=== PATIENT | male | born 1960 | race American Indian/Alaskan Native ===

== ENCOUNTER 2021-05-05 10:23 | Outpatient (CLI) | payer OTHER ==
--- NOTE | 2021-05-05 12:07 | Cat Scan Report ---
CT THORACIC SPINE: 05/05/2021 INDICATION / CLINICAL INFORMATION: SOFT TISSUE DISORDER,UNSPECIFIED. COMPARISON: None available. FINDINGS: CT images of the thoracic spine were obtained. Images are evaluated in the axial, coronal, and sagitt al planes. There is no evidence of acute abnormality. There is a subtle right convex scoliosis of the thoracic spine. Vertebral body height and alignment i s otherwise normal. There is no evidence of canal or foraminal narrowing. C6 mild degenerative disc space narrowing and osteophyte formation is present throughout the thoracic spine. PARASPINAL STRUCTURES: Unremarkable IMPRESSION: No acute abnormality. If there is a specific area of clinical concern which is not addressed by this report, please feel fr ee to contact me directly for additional imaging and protocol evaluation. All CT scans at this location are performed using dose reduction to ALARA by means of automated expos ure control. Signer Name: Matti Borges MD Signed: 05/05/2021 12:03 PM Workstation Name: [id number]
== END 2021-05-05 10:24 | disposition home or self-care (01) ==
LOC: CT 10:23
PROVIDERS: ATTEND Surgery
DX: M41.84 Other forms of scoliosis, thoracic region (principal); M51.34 Other intervertebral disc degeneration, thoracic region; M79.9 Soft tissue disorder, unspecified
CPT/HCPCS: 72128

== ENCOUNTER 2021-06-06 10:21 | Day surgery (SDC) | payer OTHER ==
[~2021-06-06 10:21] MED LIST: BUPIVACAINE/PF (0.5%) 5 MG/1 ML 30 ML VIAL INFILTRATI ONE; LIDOCAINE (1%) 10 MG/1 ML VIAL 20 ML MDV ONE
[2021-06-06] MEDS ORDERED: LIDOCAINE (1%) 10 MG/1 ML VIAL 20 ML MDV INFILTRATI ONE (10:50)
[2021-06-06] MEDS ORDERED: BUPIVACAINE/PF (0.5%) 5 MG/1 ML 30 ML VIAL INFILTRATI ONE (10:50)
[2021-06-06] MEDS ORDERED: SODIUM CHLORIDE 0.9% IRR 1,500 ML BOTTLE IR ONE (10:51)
[2021-06-06 11:12] VITALS: BP 125/84
--- NOTE | 2021-06-06 13:59 | Procedure Note ---
Date of procedure: 06/06/21 Pre-op diagnosis: Large mass of right back Post-op diagnosis: same Procedure: Incisional biopsy of right back mass Findings: Patient identified. He was brought back to the procedure room and placed in right lateral decubitus position. The area was prepped and draped in usual sterile fashion and a timeout performed. Local anesthetic was infiltrated into the skin at the intended incision site. A 2 cm horizontal incision was made in the skin at the center of the mass using a 15 blade. Dissection was carried out using hemostat in order to separate the macerated skin. A biopsy of the mass was performed using Metzenbaum scissors. The superficial margin was marked with a stitch. The specimen was passed off the table. The wound was irrigated hemostasis achieved with electrocautery. The deep dermal layer was then closed with interrupted 3-0 Vicryl stitches. The skin was approximated using 4-0 Monocryl subcuticular stitches and skin glue. At the end of the case all sponge, instrument, sharp counts were correct x2. Patient tolerated the procedure well. He was discharged to home in stable condition Anesthesia: local Surgeon: TRIXIE ARCOS Estimated blood loss: minimal Pathology: list (incisional biopsy of right back mass) Specimen disposition: to lab Condition: stable Disposition: other (Home)
== END 2021-06-06 10:22 | disposition home or self-care (01) ==
LOC: OR 10:21
PROVIDERS: ATTEND Surgery
DX: R22.2 Localized swelling, mass and lump, trunk (principal); M79.89 Other specified soft tissue disorders; G47.30 Sleep apnea, unspecified; M19.90 Unspecified osteoarthritis, unspecified site; F41.9 Anxiety disorder, unspecified; Z79.84 Long term (current) use of oral hypoglycemic drugs; Z79.899 Other long term (current) drug therapy
CPT/HCPCS: 11106; 88304; J3490; 88307

== ENCOUNTER 2021-06-13 09:04 | Day surgery (SDC) | payer OTHER ==
[2021-06-13] MEDS ORDERED: LACTATED RINGERS 1,000 ML ONE (09:19)
[2021-06-13] MEDS ORDERED: ONDANSETRON 4 MG/2 ML INJ IV PRN (10:12)
[2021-06-13] MEDS ORDERED: HYDROmorphone 1 MG/1 ML INJ IV PRN ×2 (10:12)
[2021-06-13] MEDS ORDERED: LACTATED RINGERS 1,000 ML IV SCH (11:00)
[2021-06-13] MEDS ORDERED: ceFAZolin/Water 2 GM/20 ML 2 GM/20 ML SYRINGE IV NR (11:00)
--- NOTE | 2021-06-13 11:17 | Anesthesia Day of Surgery ---
Anesthesia Day of Surgery - Day of Surgery Patient Examined: Yes Patient H&P Reviewed: Yes Patient is NPO: Yes
--- NOTE | 2021-06-13 11:19 | Anesthesia Consultation ---
Anesthesia Consult and Med Hx Date of service: 06/13/21 - Airway Anesthetic Teeth Evaluation: Good ROM Head & Neck: Adequate Mental/Hyoid Distance: Adequate Mallampati Class: Class II Intubation Access Assessment: Good - Pre-Operative Health Status ASA Pre-Surgery Classification: ASA3 Proposed Anesthetic Plan: MAC (GA if needed) - Pulmonary Hx Smoking: No Hx Sleep Apnea: Yes (DX SLEEP APNEA WITH CPAP USE) - Cardiovascular System Hx Hypertension: No - Central Nervous System Hx Back Pain: Yes Hx Psychiatric Problems: Yes (PTSD/Anxiety) - Endocrine Hx Non-Insulin Dependent Diabetes: Yes (Sugars have been running high) - Hematic Hx Anemia: No - Other Systems Hx Cancer: No
[2021-06-13] MEDS ORDERED: MIDAZOLAM 2 MG/2 ML INJ IV NR (12:00)
[2021-06-13] MEDS ORDERED: ONDANSETRON 4 MG/2 ML INJ ONE (12:43)
[2021-06-13] MEDS ORDERED: HYDROmorphone 1 MG/1 ML INJ ONE (12:43)
[2021-06-13] MEDS ORDERED: propofoL 200 MG/20 ML VIAL IV ONE (12:43)
[2021-06-13] MEDS ORDERED: LIDOCAINE MPF (2%) 20 MG/1 ML VIAL 5 ML ONE (12:43)
[2021-06-13] MEDS ORDERED: BUPIVACAINE/PF (0.25%) 2.5 MG/ML 30 ML VIAL INFILTRATI ONE ×2 (12:44→13:27)
[2021-06-13] MEDS ORDERED: ROCURONIUM 50 MG/5 ML INJ IV ONE (12:44)
[2021-06-13] MEDS ORDERED: LIDOCAINE (1%) 10 MG/1 ML VIAL 20 ML MDV ONE (12:44)
[2021-06-13] MEDS ORDERED: ePHEDrine SULFATE 50 MG/1 ML INJ ONE (13:19)
[2021-06-13] MEDS ORDERED: SODIUM CHLORIDE 0.9% 1000 ML 1,000 ML ONE ×2 (13:24→14:33)
[2021-06-13] MEDS ORDERED: SODIUM CHLORIDE 0.9% IRR 1,500 ML BOTTLE IR ONE (13:28)
[2021-06-13] MEDS ORDERED: LIDOCAINE (1%) 10 MG/1 ML VIAL 20 ML MDV INFILTRATI ONE (13:28)
[2021-06-13] MEDS ORDERED: NEOSTIGMINE 10MG/10 ML INJ MDV ONE (14:31)
[2021-06-13] MEDS ORDERED: GLYCOPYRROLATE 0.4 MG/2 ML INJ ONE (14:31)
--- NOTE | 2021-06-13 14:53 | Short Stay Summary ---
Short Stay Documentation Date of service: 06/13/21 - History Principal diagnosis: mass of right back H&P: obtained from office - Allergies and Medications Current Medications: Allergies No Known Allergies Allergy (Verified 06/05/21 16:15) Home Medications Medication Instructions Recorded Confirmed Last Taken Type metFORMIN [Glucophage] 850 mg PO BID 06/05/21 06/13/21 06/12/21 History Active Medications Hydromorphone HCl (Hydromorphone 1 Mg/1 Ml Inj) 0.25 mg IV Q10MIN PRN PRN Reason: Pain, Moderate (4-6) Stop: 06/13/21 20:00 Hydromorphone HCl (Hydromorphone 1 Mg/1 Ml Inj) 0.5 mg IV Q10MIN PRN PRN Reason: Pain , Severe (7-10) Stop: 06/13/21 20:00 Lactated Ringer's (Lactated Ringers) 1,000 mls @ 125 mls/hr IV DIRECT JOHNNY Last Admin: 06/13/21 09:25 Dose: 125 mls/hr Midazolam HCl (Midazolam 2 Mg/2 Ml Inj) 2 mg IV PREOP NR Stop: 06/13/21 23:59 Last Admin: 06/13/21 11:36 Dose: 2 mg - Brief post op/procedure progress note Date of procedure: 06/13/21 Pre-op diagnosis: right upper back mass Post-op diagnosis: same Procedure: excision of right upper back mass Anesthesia: GETA, local Findings: 20+ cm mass of right upper back, lobulated and fatty Surgeon: TRIXIE ARCOS Estimated blood loss: minimal Pathology: list (mass right upper back) Specimen disposition: to lab Condition: stable - Hospital course Hospital course: Pt observed in PACU and discharged to home in stable condition. - Disposition Condition at discharge: Good Disposition: 01 HOME / SELF CARE / HOMELESS Short Stay Discharge Plan Activity: no restrictions Diet: regular Wound: open to air Follow up with: ANGEL LEIVA MD [Primary Care Provider] - 7 Days TRIXIE ARCOS DO [Staff Physician] - 14 Days Prescriptions: HYDROcodone/APAP 5-325 [[place] 5/325] 1 each PO Q6HR PRN #20 tablet PRN Reason: Pain , Severe (7-10)
--- NOTE | 2021-06-13 15:38 | Operative Report ---
Operative Report Operative Report: Date of procedure: 06/13/21 Pre-op diagnosis: right upper back mass Post-op diagnosis: same Procedure: excision of right upper back mass Anesthesia: GETA, local Findings: 20+ cm mass of right upper back, lobulated and fatty Surgeon: TRIXIE ARCOS Estimated blood loss: minimal Pathology: list (mass right upper back) Specimen disposition: to lab Condition: stable Hospital course: Pt observed in PACU and discharged to home in stable condition. HPI and indication: Pt is a 60 yo M with large mass of right upper back. Incisional biopsy was performed and pathology revealed lipoma. It was recommended that patient undergo excision of mass. All risks, benefits, alternatives to surgery discussed and questions answered. Consent obtained. Procedure in detail: Patient was identified in the preoperative area, taken back to the operating room. Anesthesia was induced on the stretcher and patient intubated. Patient placed on the operating room table prone position and all bony prominences padded appropriately. The right upper back was prepped and draped in usual sterile fashion and a timeout was performed. Local anesthetic was infiltrated into the skin at the intended incision site. A horizontal incision was made in the skin over the mass using a 15 blade. Dissection was carried down through the skin using electrocautery. The capsule was identified and incised. The mass was identified. Using a combination of blunt dissection and electrocautery, the mass was carefully dissected away from the surrounding tissue circumferentially. The posterior capsule was chronically adherent to the underlying muscle. The mass extended to the latissimus dorsi muscle but did not involve the muscle. The entire mass was excised and measured 20+cm. The mass was lobulated and fatty consistent with lipoma. The mass was marked with short stitch superficial, long stitch lateral, and double tail stitch superior. This was then passed off the table as a specimen. The wound was then irrigated and hemostasis achieved with electrocautery. Surgicel powder sprayed into wound bed. A 19 F hai drain was placed into the wound bed and brought out through a stab incision in lateral to incision. This was secured to skin using 3-0 nylon drain stitch. Once hemostasis was ensured, the incision was closed in layered fashion. The deep layer was closed using interrupted 3-0 Vicryl sutures. The skin was closed with 4-0 Monocryl subcuticular stitches and skin glue. A 4x4 gauze was applied to the drain site and secured with tegaderm. A binder was applied. At the end of the case, all sponge, instrument, sharp counts were correct 2. The patient was awoken from anesthesia and taken to PACU in stable condition.
--- NOTE | 2021-06-13 16:04 | Post Anesthesia Evaluation ---
- Post Anesthesia Evaluation Patient Participated: Yes Airway Patent: Yes Stable Respiratory Function: Yes Nausea/Vomiting: No Temp > 96.8F: Yes Pain Manageable: Yes Adequeate Hydration: Yes Anesthesia Complications: No Block Receding Appropriately: Not Applicable Patient on Ventilator: No
[2021-06-13] MEDS ORDERED: oxyCODONE /ACETAMINOPHEN 5-325MG TAB ONE (16:49)
[2021-06-13] MEDS ORDERED: oxyCODONE /ACETAMINOPHEN 5-325MG TAB PO PRN (16:53)
[2021-06-13 17:44] VITALS: BP 117/69
== END 2021-06-13 17:00 | disposition home or self-care (01) ==
LOC: OR 09:04
PROVIDERS: ATTEND Surgery
DX: M79.9 Soft tissue disorder, unspecified (principal); D17.1 Benign lipomatous neoplasm of skin and subcutaneous tissue of trunk; R22.2 Localized swelling, mass and lump, trunk; E11.9 Type 2 diabetes mellitus without complications; G47.30 Sleep apnea, unspecified; F41.9 Anxiety disorder, unspecified; M19.90 Unspecified osteoarthritis, unspecified site; Z79.84 Long term (current) use of oral hypoglycemic drugs; Z79.899 Other long term (current) drug therapy; Z98.890 Other specified postprocedural states; Z20.822 Contact with and (suspected) exposure to COVID-19
CPT/HCPCS: 21931; 82962; 88304; J0690; J1170; J1815; J2250; J2405; J2704; J2710; J3490; J7030; J7120; U0003; 88307; Q0162